=== PATIENT | male | born 1970 | race Caucasian/White ===

== ENCOUNTER → 2016-06-01 | Outpatient (CLI) | payer OTHER ==
[2016-02-05 14:18] VITALS: BP 126/84
[~2016-06-01] MED LIST: ESCI10TA PO; HYDR-2762 PO; IBUP200T77 PO; IVAB5TAB PO; LISI10TA2 PO; LORA10TA68 PO; METH-38 PO; METO25TA9 PO; OMEP20CA9 PO; OXYC-244 PO; TEST200V3 IM
--- NOTE | 2016-06-01 11:14 | CARD ---
APPROVED REPORT EXAM: Two-dimensional and M-mode echocardiogram with Doppler and color Doppler. Other Information Quality : Good INDICATION Non-Ischemic Cardiomyopathy 2D DIMENSIONS RVDd2.5 (2.9-3.5cm)Left Atrium(2D)3.0 (1.6-4.0cm) IVSd1.1 (0.7-1.1cm)Aortic Root(2D)3.1 (2.0-3.7cm) LVDd5.9 (3.9-5.9cm)LVOT Diameter2.0 (1.8-2.4cm) PWd0.9 (0.7-1.1cm)LVDs4.3 (2.5-4.0cm) FS (%) 23.0 %SV91.7 ml LVEF(%)45.0 (>50%) Aortic Valve AoV Peak Jossue.131.4cm/sAoV VTI20.7cm AO Peak GR.6.9mmHgLVOT Peak Jossue.98.9cm/s AO Mean GR.4mmHgAVA (VMAX)2.36cm2 JENNY (VTI)2.30cm2 Mitral Valve MV E Zkhehore33.2cm/sMV DECEL ISRX147us MV A Ymvwcljm23.9cm/sE/A Ratio0.8 Tricuspid Valve TR P. Fbuzdngo267kb/sRAP KYIIVOKT8tpJw TR Peak Gr.60zjAdYMFR34rdHm Pulmonary Vein S1 Ztumtxav62.3cm/sD2 Xbwmtdaq77.5cm/s LEFT VENTRICLE The left ventricle is normal size. There is normal left ventricular wall thickness. Left ventricle sy stolic function is mildly impaired. The Ejection Fraction is estimated at 45%. There is mild global h ypokinesis of the left ventricle. Transmitral Doppler flow pattern is Grade I-abnormal relaxation pat tern. RIGHT VENTRICLE The right ventricle is normal size. The right ventricular systolic function is normal. ATRIA The left atrium size is normal. The right atrium size is normal. The interatrial septum is intact wit h no evidence for an atrial septal defect or patent foramen ovale as noted on 2-D or Doppler imaging. AORTIC VALVE The aortic valve is normal in structure and function. Doppler and Color Flow revealed no significant aortic regurgitation. There is no significant aortic valvular stenosis. MITRAL VALVE The mitral valve is normal in structure and function. There is no evidence of mitral valve prolapse. There is no mitral valve stenosis. Doppler and Color-flow revealed trace to mild mitral regurgitation . TRICUSPID VALVE The tricuspid valve is normal in structure and function. Doppler and Color Flow revealed trace to mil d tricuspid regurgitation. The PA pressure was estimated at 18 mmHg. There is no tricuspid valve sten osis. PULMONIC VALVE The pulmonary valve is normal in structure and function. Doppler and Color Flow revealed mild pulmoni c valvular regurgitation. There is no pulmonic valvular stenosis. GREAT VESSELS The aortic root is normal in size. The ascending aorta is normal in size. The IVC is normal in size a nd collapses >50% with inspiration. PERICARDIAL EFFUSION There is no evidence of significant pericardial effusion. Critical Notification Critical Value: No <Conclusion> The left ventricle is normal size. Left ventricle systolic function is mildly impaired. The Ejection Fraction is estimated at 45%. There is mild global hypokinesis of the left ventricle. There is no significant aortic valvular stenosis. Doppler and Color Flow revealed no significant aortic regurgitation. Doppler and Color-flow revealed trace to mild mitral regurgitation. Doppler and Color Flow revealed trace to mild tricuspid regurgitation. The PA pressure was estimated at 18 mmHg.
== END | disposition home or self-care (01) ==
LOC: ECHO 09:57
PROVIDERS: ATTEND Internal Medicine Cardiovascular Disease
DX: I42.9 Cardiomyopathy, unspecified (principal); I37.1 Nonrheumatic pulmonary valve insufficiency; I34.0 Nonrheumatic mitral (valve) insufficiency
CPT/HCPCS: 93306

== ENCOUNTER → 2016-08-25 | Outpatient (CLI) | payer OTHER ==
[2016-02-05 14:18] VITALS: BP 126/84
--- NOTE | 2016-08-25 09:59 | KCIC ---
EXAM: Lumbar spine, 2 views. HISTORY: Pain. COMPARISON: 04/13/2016 FINDINGS: Frontal and lateral views of the lumbar spine are obtained. There has been instrumented spinal fusion and intervertebral disc fusion device placement at L4-L5. There is endplate remodeling at this level. There is no significant listhesis. The vertebral bodies are normal in height. IMPRESSION: 1. Instrumented fusion at L4-L5. 2. No acute osseous finding. Electronically signed by: Adriana Orantes MD (08/25/2016 9:56 AM)
== END | disposition home or self-care (01) ==
LOC: KCIC 09:31
PROVIDERS: ATTEND Neurological Surgery
DX: M43.26 Fusion of spine, lumbar region (principal); Z98.1 Arthrodesis status
CPT/HCPCS: 72100

== ENCOUNTER → 2016-11-18 | Outpatient (CLI) | payer OTHER ==
[2016-02-05 14:18] VITALS: BP 126/84
[~2016-11-18] MED LIST changes: -ESCI10TA PO; +ESCITALOPRAM OX10 MG PO; -OXYC-244 PO; +OXYC-327 PO
--- NOTE | 2016-11-18 13:59 | KCIC ---
Examination: 2 views of the lumbar spine HISTORY: History of low back pain COMPARISON: 08/25/2016 FINDINGS: Spinal fusion hardware is again identified with intervertebral disc spacer identified at L4-L5 vertebral level grossly similar to prior exam. There is mild endplate remodeling at this level. No evidence of significant listhesis. The vertebral body heights are maintained. IMPRESSION: Unchanged hardware L4-L5 vertebral level. Minimal endplate remodeling at this level. Electronically signed by: Dillan Chavarria MD (11/18/2016 1:56 PM) [facility]
== END | disposition home or self-care (01) ==
LOC: KCIC 11:52
PROVIDERS: ATTEND Neurological Surgery
DX: M54.5 Low back pain (principal)
CPT/HCPCS: 72100

== ENCOUNTER → 2017-02-08 | Outpatient (CLI) | payer OTHER ==
[2016-02-05 14:18] VITALS: BP 126/84
[~2017-02-08] MED LIST changes: +METO-239 PO; -METO25TA9 PO
--- NOTE | 2017-02-08 12:54 | KCIC ---
LUMBAR SPINE MIN 4V History: Postop one year lumbar fusion Comparison: November 18, 2016 Findings: 5 views of the lumbar spine are submitted. There again has been posterolateral fusion at L4-5 with bilateral pedicle screws attached to intact vertical rods. There is again interbody spacer on the left at the L4-5 level, similar in position. Lumbar vertebral body stature and AP alignment are maintained. No acute osseous normality is identified. There has been cholecystectomy. Impression: 1. There is intact posterolateral fusion hardware at L4-5. Electronically signed by: Bijan Martinez MD (02/08/2017 12:51 PM) [facility]
== END | disposition home or self-care (01) ==
LOC: KCIC 12:25
PROVIDERS: ATTEND Neurological Surgery
DX: Z98.1 Arthrodesis status (principal); Z98.890 Other specified postprocedural states
CPT/HCPCS: 72110

== ENCOUNTER → 2017-04-22 | Outpatient (CLI) | payer OTHER | END | disposition home or self-care (01) | LOC: ECHO 12:48 | DX: I37.1 Nonrheumatic pulmonary valve insufficiency (principal); R00.0 Tachycardia, unspecified | CPT/HCPCS: 93306 ==

== ENCOUNTER → 2018-02-01 | Outpatient (CLI) | payer OTHER ==
[2017-12-05 11:23] VITALS: BP 102/66
[~2018-02-01] MED LIST changes: +ALPR0.5T6 PO; +COLE1TAB PO; +MESA0.372 PO
--- NOTE | 2018-02-01 11:47 | KCIC ---
Small bowel follow-through study 02/01/2018 CLINICAL HISTORY: Chronic diarrhea with left lower quadrant abdominal pain intermittently. TECHNIQUE: A small bowel follow-through study was performed under radiographic and intermittent fluoroscopic control. The total fluoroscopic time is 2 minutes 11 seconds. 3 digital spot radiographs were obtained. FINDINGS: Comparison is made to the patient's CT scan of the abdomen and pelvis dated 12/03/2017. An AP digital radiograph of the abdomen/pelvis was obtained as a mis manager. This radiograph demonstrates surgical clips within the right upper quadrant abdomen consistent with a cholecystectomy. The patient is post fusion using pedicle screws, stabilizing rods and bone graft material at L4-5. The abdominal bowel gas pattern is nonobstructive. Calcifications are seen within the pelvis consistent with a glass. Mild degenerative changes are seen involving the lower lumbar spine and both hips. The mucosal pattern of the duodenum, jejunum, ileum and terminal ileum is within normal limits. The small bowel transit time is within normal limits. The cecum is located within the right mid abdomen. The appendix is distended with contrast. No abnormality of the appendix is seen. No small bowel wall thickening is noted. IMPRESSION: Negative study. Electronically signed by: Joseph Silveira MD (02/01/2018 11:44 AM) [facility]
== END | disposition home or self-care (01) ==
LOC: KCIC 08:16
PROVIDERS: ATTEND Internal Medicine Gastroenterology
DX: R10.32 Left lower quadrant pain (principal); R19.7 Diarrhea, unspecified; I10 Essential (primary) hypertension; K21.9 Gastro-esophageal reflux disease without esophagitis; F17.210 Nicotine dependence, cigarettes, uncomplicated
CPT/HCPCS: 74250

== ENCOUNTER → 2018-04-29 | Outpatient (CLI) | payer OTHER ==
[2017-12-05 11:23] VITALS: BP 102/66
[~2018-04-29] MED LIST changes: -HYDR-2762 PO; +HYDR-2765 PO; -OXYC-327 PO; +OXYC1TAB19 PO
--- NOTE | 2018-04-29 13:42 | CARD ---
MR#: [id number] Date of Study: 04/29/2018 Ordering Physician: LAYO AGUILAR, Referring Physician: LAYO AGUILAR, Tech: Alexia Villasenor [facility] APPROVED REPORT EXAM: Two-dimensional and M-mode echocardiogram with Doppler and color Doppler. Other Information Quality : GoodHR: 76bpm Rhythm : NSR INDICATION Cardiomyopathy 2D DIMENSIONS RVDd3.1 (2.9-3.5cm)Left Atrium(2D)3.1 (1.6-4.0cm) IVSd0.9 (0.7-1.1cm)Aortic Root(2D)3.2 (2.0-3.7cm) LVDd5.8 (3.9-5.9cm)LVOT Diameter2.2 (1.8-2.4cm) PWd0.9 (0.7-1.1cm)LVDs4.7 (2.5-4.0cm) FS (%) 18.7 %SV63.3 ml M-Mode DIMENSIONS Left Atrium(MM)2.53 (2.5-4.0cm)Aortic Root2.93 (2.2-3.7cm) Aortic Valve AoV Peak Jossue.128.2cm/sAoV VTI25.3cm AO Peak GR.6.6mmHgLVOT Peak Jossue.105.9cm/s AO Mean GR.3mmHgAVA (VMAX)3.22cm2 JENNY (VTI)3.20cm2 Mitral Valve MV E Dzbumhls97.1cm/sMV DECEL ISAV591vw MV A Cbfgqhfg40.0cm/sE/A Ratio0.9 MV A Kycjnihg57cd Pulmonary Valve PV Peak Stmjrofz06.3cm/s Tricuspid Valve TR P. Zlauyvcb933hk/sRAP JMVIXAZK1kuBo TR Peak Gr.46scWkGKJK15egNv Pulmonary Vein S1 Wiuyulhy08.1cm/sD2 Hsweagvg29.1cm/s PVa mvbegjsi76mqlf LEFT VENTRICLE The Left Ventricle is borderline dilated. There is normal left ventricular wall thickness. The ejecti on fraction is mildly impaired. The Ejection Fraction is estimated at 45%. There is mild global hypok inesis of the left ventricle. Transmitral Doppler flow pattern is Grade I-abnormal relaxation pattern . RIGHT VENTRICLE The right ventricle is normal size. There is normal right ventricular wall thickness. The right ventr icular systolic function is normal. ATRIA The left atrium size is normal. The right atrium size is normal. The interatrial septum is intact wit h no evidence for an atrial septal defect or patent foramen ovale as noted on 2-D or Doppler imaging. AORTIC VALVE The aortic valve is normal in structure and function. The aortic valve is trileaflet. Doppler and Col or Flow revealed no significant aortic regurgitation. There is no significant aortic valvular stenosi s. MITRAL VALVE The mitral valve is normal in structure and function. There is no evidence of mitral valve prolapse. There is no mitral valve stenosis. Doppler and Color Flow revealed no mitral valve regurgitation note d. TRICUSPID VALVE The tricuspid valve is normal in structure and function. Doppler and Color Flow revealed trace tricus pid regurgitation. The PA pressure was estimated at 22 mmHg. There is no tricuspid valve prolapse or vegetation. There is no tricuspid valve stenosis. PULMONIC VALVE The pulmonary valve is normal in structure and function. Doppler and Color Flow revealed mild pulmoni c valvular regurgitation. There is no pulmonic valvular stenosis. GREAT VESSELS The aortic root is normal in size. The ascending aorta is normal in size. The IVC is normal in size a nd collapses >50% with inspiration. PERICARDIAL EFFUSION There is no evidence of significant pericardial effusion. Critical Notification Critical Value: No <Conclusion> The Left Ventricle is borderline dilated. The ejection fraction is mildly impaired. The Ejection Fraction is estimated at 45%. There is mild global hypokinesis of the left ventricle. There is no significant aortic valvular stenosis. Doppler and Color Flow revealed no significant aortic regurgitation. Doppler and Color Flow revealed no mitral valve regurgitation noted. Doppler and Color Flow revealed trace tricuspid regurgitation. The PA pressure was estimated at 22 mmHg. Signed by : Roland Campos MD Electronically Approved : 04/29/2018 13:40:21
== END | disposition home or self-care (01) ==
LOC: ECHO 12:31
PROVIDERS: ATTEND Internal Medicine Cardiovascular Disease
DX: I37.1 Nonrheumatic pulmonary valve insufficiency (principal); I42.9 Cardiomyopathy, unspecified
CPT/HCPCS: 93306

== ENCOUNTER → 2018-12-29 | Outpatient (CLI) | payer OTHER ==
[2017-12-05 11:23] VITALS: BP 102/66
[~2018-12-29] MED LIST changes: +OMEP20CA10 PO; -OMEP20CA9 PO
[2018-12-29 11:58] LABS: ALBUMIN 3.8 g/dL (3.4-5.0); ALBUMIN/GLOBULIN RATIO 1.1 (1.0-1.7); CALCIUM 9.1 mg/dL (8.5-10.1); CHOLESTEROL/HDL RATIO 4.1; CREATININE 0.9 mg/dL (0.7-1.3); GFR 89.7; POTASSIUM 3.6 mmol/L (3.5-5.1); TOTAL BILIRUBIN 0.4 mg/dL (0.2-1.0); TOTAL PROTEIN 7.3 g/dL (6.4-8.2)
== END | disposition home or self-care (01) ==
LOC: LAB 10:53
PROVIDERS: ATTEND Internal Medicine Cardiovascular Disease
DX: I42.9 Cardiomyopathy, unspecified (principal); E78.1 Pure hyperglyceridemia
CPT/HCPCS: 36415; 80053; 80061; 83721; 83880

== ENCOUNTER → 2019-01-16 | Outpatient (CLI) | payer OTHER ==
[2017-12-05 11:23] VITALS: BP 102/66
--- NOTE | 2019-01-16 08:51 | KCIC ---
EXAM: Abdomen sonogram. HISTORY: Elevated liver function laboratory values. TECHNIQUE: Sonographic imaging of the abdomen was performed. COMPARISON: None. FINDINGS: The liver is upper normal in size. There is hepatic steatosis. No focal hepatic lesion is seen. The common bile duct is normal in caliber. The gallbladder is surgically absent. The right kidney is unremarkable. The inferior vena cava is patent. The aorta is normal in caliber. The pancreas is partially obscured due to bowel gas. IMPRESSION: 1. Hepatic steatosis. 2. Cholecystectomy. Electronically signed by: Adriana Orantes MD (01/16/2019 8:48 AM) [facility]
== END | disposition home or self-care (01) ==
LOC: KCIC US 07:53
PROVIDERS: ATTEND Family Medicine
DX: K76.0 Fatty (change of) liver, not elsewhere classified (principal); Z90.49 Acquired absence of other specified parts of digestive tract
CPT/HCPCS: 76705

== ENCOUNTER 2019-06-11 16:14 | Emergency (ER) | payer OTHER ==
[~2019-06-11] VITALS: Ht 172.7 cm; Wt 77.2 kg
[~2019-06-11 16:14] MED LIST changes: -OMEP20CA10 PO; +OMEP20CA16 PO
[2019-06-11] MEDS ORDERED: HYDROmorphone 2 MG/ML VIAL IVP ONE (16:30)
[2019-06-11] MEDS ORDERED: ONDANSETRON PF 4 MG/2 ML VIAL. IV ONE (16:30)
[2019-06-11] MEDS ORDERED: IV NORMAL SALINE 1000ML BAG 1,000 ML IV ONE (16:45)
[2019-06-11 17:07] LABS: BASO % 0 % (0-3); EOS # 0.1 x10^3/uL (0.0-0.7); EOS % 1 % (0-3); HEMATOCRIT 40.9 % (39.0-53.0); HEMOGLOBIN 14.5 g/dL (13.0-17.5); LYMPH # 2.5 x10^3/uL (1.0-4.8); LYMPH % 37 % (24-48); MEAN CORPUSCULAR HEMOGLOBIN 35 pg (25-35); MEAN CORPUSCULAR HGB CONC 36 g/dL (31-37); MEAN CORPUSCULAR VOLUME 99 fL (79-100); MONO # 0.9 x10^3/uL (0.0-1.1); MONO % 13 % (0-9); NEUT # 3.3 x10^3/uL (1.8-7.7); NEUT % 49 % (31-73); PLATELET COUNT 185 x10^3/uL (140-400); RED BLOOD COUNT 4.14 x10^6/uL (4.30-5.70); WHITE BLOOD COUNT 6.8 x10^3/uL (4.0-11.0)
[2019-06-11 17:18] LABS: CALCIUM 8.4 mg/dL (8.5-10.1); CREATININE 0.8 mg/dL (0.7-1.3); GFR 102.3; POTASSIUM 4.1 mmol/L (3.5-5.1)
[2019-06-11] MEDS ORDERED: IOHEXOL 300 MG/ML 100ML VIAL. IV ONE (17:30)
[2019-06-11] MEDS ORDERED: CONTRAST GIVEN. MC PRN (17:45)
[2019-06-11] MEDS ORDERED: HYDROmorphone 2 MG/ML VIAL IV ONE (18:00)
[2019-06-11 18:10] LABS: BILIRUBIN,URINE NEGATIVE (NEG); CLARITY,URINE CLEAR; COLOR,URINE YELLOW; NITRITE,URINE NEGATIVE (NEG); PROTEIN,URINE NEGATIVE (NEG-TRACE); UROBILINOGEN,URINE 0.2 mg/dL (0.2 mg/dL)
[2019-06-11 18:25] LABS: BACTERIA,URINE 0 /HPF (0-FEW); RBC,URINE 0 /HPF (0-2); SQUAMOUS EPITHELIAL CELL,UR OCC /LPF; WBC,URINE OCC /HPF (0-4)
--- NOTE | 2019-06-11 18:35 | RAD ---
Examination: CT CHEST ABD PELVIS W/CONTRAST, CT LUMBAR SPINE RECONSTRUCTION, CT THORACIC SPINE RECONSTRUCT History: Pain. Symptoms especially involving the left rib and left flank regions. Fell into a manhole Comparison/Correlation: 02/04/2016 CT lumbar spine without contrast. 12/03/2017 CT abdomen and pelvis with contrast. Findings: Axial images of the chest, abdomen, and pelvis were obtained following IV contrast. Sagittal and coronal reformatted images were provided. Axial images of the thoracic and lumbar spine were obtained without contrast. Sagittal and coronal reformatted images were provided. The tracheal bronchial tree is unremarkable. No infiltrate or pleural effusion. Minimal discoid linear atelectasis both right middle lobe. Small densities at the left mid to lower thoracic level about the major fissure which probably represent. Fissural lymph nodes are identified. Calcified left lung basilar granulomas are present. No pneumothorax. No pericardial effusion. Displaced left 12th rib fracture is present. Nondisplaced left 11th rib fracture is present posteriorly. Spinal stimulator device with leads terminating in the lower thoracic spinal canal noted. Radiopaque densities which appear present anchor sutures involving the right bony glenoid are present. Thoracic aorta is unremarkable. Calcification involvement involving the abdominal aorta is minimal and scattered. Cholecystectomy is present. Spleen, pancreas, and adrenal glands are normal. Calcifications involve the spleen. Kidneys are unremarkable. Benign-appearing calcific densities involving the pelvic fat noted. Urinary bladder is unremarkable. No enlarged abdominal or pelvic lymph nodes. No ascites or pelvic free fluid. Appendix is normal. No bowel obstruction. L4-5 lumbar spine postoperative fusion is present with intervertebral disc spacer material. Alignment of the thoracic and lumbar spine is normal. Vertebral body heights are adequate. Disc spaces are adequate. Impression: Nondisplaced acute left 11th rib fracture. Displaced acute left 12th rib fracture. No pneumothorax or infiltrate. No evidence of abdominal or pelvic organ laceration. No thoracic or lumbar spine malalignment or fracture. PQRS Compliance Statement: One or more of the following individualized dose reduction techniques were utilized for this examination: 1. Automated exposure control 2. Adjustment of the mA and/or kV according to patient size 3. Use of iterative reconstruction technique Electronically signed by: Benny Roth MD (06/11/2019 6:32 PM) [facility]
[2019-06-11] MEDS ORDERED: HYDR-2761 PO (18:53)
--- NOTE | 2019-06-11 18:53 | PHYS DOC ---
Past Medical History Past Medical History: Alcoholism, Anxiety, GERD, Hypertension Additional Past Medical Histor: nonischemic cardiomyopathy, chronic back pain Past Surgical History: Cholecystectomy, Other Additional Past Surgical Histo: RT SHOULDER,LEFT KNEE, LOW BACK,spinal cord stimulator,hemmorhoid Smoking Status: Current Every Day Smoker Additional Information: smokes 0-3 small cigars daily Alcohol Use: Heavy Additional Information: drinks up to 6 beers daily Drug Use: None Adult General Chief Complaint Chief Complaint: TRAUMA ALERT HPI HPI Patient is a 49 year old male who presents to the emergency department via EMS with complaints of left low back pain and left posterior rib pain after acc identally falling into an uncovered manhole today. Patient fell approximately 3 feet down into the manhole. He was chasing a dog that was about to run into traffic when he accidentally fell into the manhole. He denies any loss of consciousness, head, neck, or extremity pain after the fall. He currently rates his pain a 10 out of 10 on the pain scale, he denies any alleviating factors, the pain increases with deep breath and palpation. Review of Systems Review of Systems Complete ROS is negative unless otherwise noted in HPI. Current Medications Current Medications Current Medications Medications (Trade) Dose Ordered Sig/Marco Start Time Stop Time Status Last Admin Dose Admin Hydromorphone HCl (Dilaudid) 1 mg 1X ONCE 06/11/19 18:00 06/11/19 18:01 DC 06/11/19 18:31 1 MG Info (CONTRAST GIVEN -- Rx MONITORING) 1 each PRN DAILY PRN 06/11/19 17:45 06/11/19 19:25 DC Iohexol (Omnipaque 300 Mg/ml) 75 ml 1X ONCE 06/11/19 17:30 06/11/19 17:31 DC 06/11/19 17:43 75 ML Ondansetron HCl (Zofran) 4 mg 1X ONCE 06/11/19 16:30 06/11/19 16:31 DC 06/11/19 16:51 4 MG Sodium Chloride 1,000 ml @ 1,000 mls/hr 1X ONCE 06/11/19 16:45 06/11/19 17:44 DC 06/11/19 16:51 1,000 MLS/HR Allergies Allergies Allergies Coded Allergies Type Severity Reaction Last Updated Verified No Known Drug Allergies 02/04/16 No Physical Exam Physical Exam See Above Constitutional: Well developed, well nourished, moderate distress, non-toxic appearance. [] HENT: Normocephalic, atraumatic, bilateral external ears normal, oropharynx moist, no oral exudates, nose normal. [] Eyes: PERRLA, EOMI, conjunctiva normal, no discharge. [] Neck: Normal range of motion, no tenderness, supple, no stridor. [] Cardiovascular:Heart rate regular rhythm, no murmur [] Lungs & Thorax: Bilateral breath sounds clear to auscultation, Respirations even and unlabored, no retractions, pain with inspiration; left lower posterior rib tenderness to palpation, no subcutaneous emphysema, no crepitus Abdomen: soft, no tenderness Skin: Warm, dry, no erythema, no rash; bruising and an abrasion noted to left posterior lower ribs. [] Back: T-spine and L-spine tenderness to palpation, no step-off, no obvious deformity Extremities: No tenderness, no cyanosis, no clubbing, ROM intact, no edema. [] Neurologic: Alert and oriented X 3, no focal deficits noted. [] Psychologic: Affect normal, judgement normal, mood normal. [] Current Patient Data Vital Signs Vital Signs Date Time Temp Pulse Resp B/P (MAP) Pulse Ox O2 Delivery O2 Flow Rate FiO2 06/11/19 19:01 86 19 114/77 (89) 96 Room Air 06/11/19 16:14 98.4 98.4 Lab Values Laboratory Tests Test 06/11/19 16:54 06/11/19 17:15 White Blood Count 6.8 x10^3/uL (4.0-11.0) Red Blood Count 4.14 x10^6/uL (4.30-5.70) L Hemoglobin 14.5 g/dL (13.0-17.5) Hematocrit 40.9 % (39.0-53.0) Mean Corpuscular Volume 99 fL (79-100) Mean Corpuscular Hemoglobin 35 pg (25-35) Mean Corpuscular Hemoglobin Concent 36 g/dL (31-37) Red Cell Distribution Width 13.0 % (11.5-14.5) Platelet Count 185 x10^3/uL (140-400) Neutrophils (%) (Auto) 49 % (31-73) Lymphocytes (%) (Auto) 37 % (24-48) Monocytes (%) (Auto) 13 % (0-9) H Eosinophils (%) (Auto) 1 % (0-3) Basophils (%) (Auto) 0 % (0-3) Neutrophils # (Auto) 3.3 x10^3/uL (1.8-7.7) Lymphocytes # (Auto) 2.5 x10^3/uL (1.0-4.8) Monocytes # (Auto) 0.9 x10^3/uL (0.0-1.1) Eosinophils # (Auto) 0.1 x10^3/uL (0.0-0.7) Basophils # (Auto) 0.0 x10^3/uL (0.0-0.2) Sodium Level 133 mmol/L (136-145) L Potassium Level 4.1 mmol/L (3.5-5.1) Chloride Level 98 mmol/L (98-107) Carbon Dioxide Level 24 mmol/L (21-32) Anion Gap 11 (6-14) Blood Urea Nitrogen 8 mg/dL (8-26) Creatinine 0.8 mg/dL (0.7-1.3) Estimated GFR (Cockcroft-Gault) 102.3 Glucose Level 118 mg/dL (70-99) H Calcium Level 8.4 mg/dL (8.5-10.1) L Urine Collection Type Unknown Urine Color Yellow Urine Clarity Clear Urine pH 6.0 (<5.0-8.0) Urine Specific [place] 1.010 (1.000-1.030) Urine Protein Negative mg/dL (NEG-TRACE) Urine Glucose (UA) Negative mg/dL (NEG) Urine Ketones (Stick) Negative mg/dL (NEG) Urine Blood Negative (NEG) Urine Nitrite Negative (NEG) Urine Bilirubin Negative (NEG) Urine Urobilinogen Dipstick 0.2 mg/dL (0.2 mg/dL) Urine Leukocyte Esterase Negative (NEG) Urine RBC 0 /HPF (0-2) Urine WBC Occ /HPF (0-4) Urine Squamous Epithelial Cells Occ /LPF Urine Bacteria 0 /HPF (0-FEW) Laboratory Tests 06/11/19 16:54 Laboratory Tests 06/11/19 16:54 EKG EKG [] Radiology/Procedures Radiology/Procedures PROCEDURE: CT CHEST ABD PELVIS W/CONTRAST Examination: CT CHEST ABD PELVIS W/CONTRAST, CT LUMBAR SPINE RECONSTRUCTION, CT THORACIC SPINE RECONSTRUCT History: Pain. Symptoms especially involving the left rib and left flank regions. Fell into a manhole Comparison/Correlation: 02/04/2016 CT lumbar spine without contrast. 12/03/2017 CT abdomen and pelvis with contrast. Findings: Axial images of the chest, abdomen, and pelvis were obtained following IV contrast. Sagittal and coronal reformatted images were provided. Axial images of the thoracic and lumbar spine were obtained without contrast. Sagittal and coronal reformatted images were provided. The tracheal bronchial tree is unremarkable. No infiltrate or pleural effusion. Minimal discoid linear atelectasis both right middle lobe. Small densities at the left mid to lower thoracic level about the major fissure which probably represent. Fissural lymph nodes are identified. Calcified left lung basilar granulomas are present. No pneumothorax. No pericardial effusion. Displaced left 12th rib fracture is present. Nondisplaced left 11th rib fracture is present posteriorly. Spinal stimulator device with leads terminating in the lower thoracic spinal canal noted. Radiopaque densities which appear present anchor sutures involving the right bony glenoid are present. Thoracic aorta is unremarkable. Calcification involvement involving the abdominal aorta is minimal and scattered. Cholecystectomy is present. Spleen, pancreas, and adrenal glands are normal. Calcifications involve the spleen. Kidneys are unremarkable. Benign-appearing calcific densities involving the pelvic fat noted. Urinary bladder is unremarkable. No enlarged abdominal or pelvic lymph nodes. No ascites or pelvic free fluid. Appendix is normal. No bowel obstruction. L4-5 lumbar spine postoperative fusion is present with intervertebral disc spacer material. Alignment of the thoracic and lumbar spine is normal. Vertebral body heights are adequate. Disc spaces are adequate. Impression: Nondisplaced acute left 11th rib fracture. Displaced acute left 12th rib fracture. No pneumothorax or infiltrate. No evidence of abdominal or pelvic organ laceration. No thoracic or lumbar spine malalignment or fracture. [] Course & Med Decision Making Course & Med Decision Making Pertinent Labs and Imaging studies reviewed. (See chart for details) Patient is a 49-year-old male who presented to the emergency room with complaints of pain with inspiration and left low back pain after falling into a manhole this afternoon. A CT chest abdomen pelvis with lumbar and thoracic spine reconstruction was ordered. CT results: Nondisplaced acute left 11th rib fracture. Displaced acute left 12th rib fracture. No pneumothorax or infiltrate. No evidence of abdominal or pelvic organ laceration. No thoracic or lumbar spine malalignment or fracture. The patient was given 2 mg of IV Dilaudid, 4 mg of Zofran, and 1 L of normal saline. CBC was unremarkable, BMP revealed sodium 133, glucose of 118, and calcium of 8.4 was otherwise unremarkable; UA was negative for blood presence. Prescriptions written for hydrocodone and naproxen. Patient was encouraged to apply ice to sore areas, he was also provided with a incentive spirometer, encouraged patient to hold the pillow, take a deep breath and cough at least twice an hour while he is awake. Follow-up with his primary care doctor in 1 to 2 days for reevaluation, return to the ER if symptoms worsen or he becomes short of breath. Patient verbalized an understanding of home care, medications, follow-up, and return to ED instructions and was in agreement with the plan of care. [] Dragon Disclaimer Dragon Disclaimer This electronic medical record was generated, in whole or in part, using a voice recognition dictation system. Departure Departure Impression: Primary Impression: Multiple fractures of ribs, left side, initial encounter for closed fracture Disposition: HOME, SELF-CARE Condition: STABLE Referrals: FELISA GIBSON MD (PCP) Patient Instructions: Rib Fracture, [id number]-my-[id number] Additional Instructions: Fill the prescription and take as directed for severe pain. Hold a pillow and cough at least 2 times every hour while awake. Use the incentive spirometer that was provided to you as instructed in the ER. Follow up with your primary care doctor this week. Return to the ER if symptoms worsen. Scripts Naproxen (NAPROXEN) 500 Mg Tablet 1 TAB PO BID PRN for PAIN for 10 Days, #20 TAB 0 Refills Prov: GARRETT CASTELLANOS REFLOW OPERATOR 06/11/19 Hydrocodone Bit/Acetaminophen (HYDROCODONE-APAP 5-325 ) 1 Tab Tablet 1 TAB PO PRN Q6HRS PRN for PAIN for 5 Days, #20 TAB 0 Refills Prov: GARRETT CASTELLANOS REFLOW OPERATOR 06/11/19 GARRETT CASTELLANOS REFLOW OPERATOR Jun 11, 2019 18:53
[2019-06-11] MEDS ORDERED: NAPR-514 PO (18:56)
[2019-06-11 19:01] VITALS: BP 114/77
== END 2019-06-11 19:23 | disposition home or self-care (01) ==
LOC: ER 16:14
DX: S22.42XA Multiple fractures of ribs, left side, initial encounter for closed fracture (principal); M54.5 Low back pain; K21.9 Gastro-esophageal reflux disease without esophagitis; I10 Essential (primary) hypertension; G89.29 Other chronic pain; F17.210 Nicotine dependence, cigarettes, uncomplicated; Z90.49 Acquired absence of other specified parts of digestive tract; F10.20 Alcohol dependence, uncomplicated; Y90.9 Presence of alcohol in blood, level not specified; W17.1XXA Fall into storm drain or manhole, initial encounter; Y93.89 Activity, other specified; Y92.89 Other specified places as the place of occurrence of the external cause; Y99.8 Other external cause status
CPT/HCPCS: 36415; 71260; 74177; 80048; 81001; 85025; 96374; 96375; 96376; 99285; J1170; J2405; J7030; Q9967

== ENCOUNTER → 2020-03-13 | Outpatient (CLI) | payer OTHER ==
[~2020-03-13] MED LIST changes: +HYDR-2761 PO; +NAPR-514 PO
--- NOTE | 2020-03-13 17:46 | CARD ---
MR#: [id number] Date of Study: 03/13/2020 Ordering Physician: LAYO AGUILAR, Referring Physician: LAYO AGUILAR, Tech: Imani Mata [facility] APPROVED REPORT EXAM: Two-dimensional and M-mode echocardiogram with Doppler and color Doppler. Other Information Quality : Good INDICATION Nonischemic Cardiomyopathy 2D DIMENSIONS RVDd2.9 (2.9-3.5cm)Left Atrium(2D)2.8 (1.6-4.0cm) IVSd1.1 (0.7-1.1cm)Aortic Root(2D)3.1 (2.0-3.7cm) LVDd5.6 (3.9-5.9cm)LVOT Diameter2.0 (1.8-2.4cm) PWd0.9 (0.7-1.1cm)LVDs3.9 (2.5-4.0cm) FS (%) 29.1 %SV83.2 ml Aortic Valve AoV Peak Jossue.114.3cm/sAoV VTI21.8cm AO Peak GR.5.2mmHgLVOT Peak Jossue.97.5cm/s LVOT VTI 18.87cmAO Mean GR.3mmHg JENNY (VMAX)2.21us0QQT (VTI)2.79cm2 Mitral Valve MV E Kuakuxad67.1cm/sMV DECEL [id number] MV A Qpzldooe15.0cm/sMV HNH888le E/A Ratio1.3MVA (PHT)2.17cm2 TDI E/Lateral E'5.1E/Medial E'12.5 Tricuspid Valve TR P. Htlrbgwu804mv/sRAP PTLQEVJV2zfIa TR Peak Gr.54goEcOAUW94meVc Pulmonary Vein S1 Xkrojxds46.7cm/sD2 Yirlwqzs62.4cm/s LEFT VENTRICLE The left ventricle is normal size. There is normal left ventricular wall thickness. The left ventricu lar systolic function is low normal to mildly decreased. The ejection fraction is 45 to 50%. There i s minimal global hypokinesis of the left ventricle. RIGHT VENTRICLE The right ventricle is normal size. The right ventricular systolic function is normal. ATRIA The left atrium size is normal. The right atrium size is normal. The interatrial septum is intact wit h no evidence for an atrial septal defect or patent foramen ovale as noted on 2-D or Doppler imaging. AORTIC VALVE The aortic valve is calcified but opens well. Doppler and Color Flow revealed no significant aortic r egurgitation. There is no significant aortic valvular stenosis. MITRAL VALVE The mitral valve is calcified but opens well. There is no evidence of mitral valve prolapse. There is no mitral valve stenosis. Doppler and Color-flow revealed trace mitral regurgitation. TRICUSPID VALVE The tricuspid valve is normal in structure and function. Doppler and Color Flow revealed trace tricus pid regurgitation. The PA pressure was estimated at 15 mmHg. There is no tricuspid valve stenosis. PULMONIC VALVE The pulmonary valve is normal in structure and function. Doppler and Color Flow revealed trace to mil d pulmonic valvular regurgitation. There is no pulmonic valvular stenosis. GREAT VESSELS The aortic root is normal in size. The ascending aorta is normal in size. The IVC is normal in size a nd collapses >50% with inspiration. PERICARDIAL EFFUSION There is no evidence of significant pericardial effusion. Critical Notification Critical Value: No <Conclusion> The left ventricle is normal size. The left ventricular systolic function is low normal to mildly decreased. The ejection fraction is 45 to 50%. There is minimal global hypokinesis of the left ventricle. Doppler and Color Flow revealed no significant aortic regurgitation. There is no significant aortic valvular stenosis. Doppler and Color-flow revealed trace mitral regurgitation. Doppler and Color Flow revealed trace tricuspid regurgitation. The PA pressure was estimated at 15 mmHg. Signed by : Roland Campos MD Electronically Approved : 03/13/2020 17:46:34
== END ==
LOC: ECHO 09:49
PROVIDERS: ATTEND Internal Medicine Cardiovascular Disease
DX: I08.8 Other rheumatic multiple valve diseases (principal); I42.9 Cardiomyopathy, unspecified
CPT/HCPCS: 93306

== ENCOUNTER → 2020-07-22 | Outpatient (CLI) | payer OTHER ==
[~2020-07-22] MED LIST changes: +IOHEXOL 300 MG/ML 50 ML VIAL. INT ART ONE; +LIDOCAINE 1% Multi-Dose 20 ML VIAL. ID ONE; +LISI10TA16 PO; -LISI10TA2 PO
--- NOTE | 2020-07-22 15:03 | KCIC ---
Examination: CT arthrogram left shoulder HISTORY: History of left shoulder joint instability COMPARISON: None available TECHNIQUE: Axial CT images of the left shoulder performed after arthrogram injection. Coronal and sag ittal reformats are performed Exposure: One or more of the following individualized dose reduction techniques were utilized for thi s examination: 1. Automated exposure control 2. Adjustment of the mA and/or kV according to patient size 3. Use of iterative reconstruction technique FINDINGS: The long head of the biceps tendon within the bicipital groove. The attachment of the long head the b iceps tendon to the superior labral anchor grossly appears intact. The attachment of the subscapulari s, supraspinatus, infraspinatus tendon grossly appears intact. No evidence of extension of contrast i n the subacromial subdeltoid bursa. There is small amount of contrast extending between the labrum an d cartilage best visualized on series 3 image 23 could be a labral tear. There is mild increased sign al identified in the superior labrum probably a tear. The muscle bulk grossly appears unremarkable. T he acromion is type II. Mild degenerative changes acromioclavicular joint. IMPRESSION: 1. No evidence of full-thickness rotator cuff tear. 2. Probable tear of the labrum. Electronically signed by: Dillan Chavarria MD (07/22/2020 3:01 PM) [id number]
--- NOTE | 2020-07-22 17:35 | KCIC ---
Left shoulder arthrogram 07/22/2020 CLINICAL HISTORY: Left shoulder pain and instability. TECHNIQUE: After the risks and benefits of the procedure were explained the patient, written informed consent was obtained. The skin surface of anterior aspect of the left shoulder was prepped and drape d in sterile fashion. 1 percent lidocaine was used as a local anesthetic. Under fluoroscopic guidance a 22-gauge needle was advanced into the anterior aspect of the left glenohumeral joint. 15 cc of a s olution containing containing 15 cc of Omnipaque 300 and 5 cc of normal saline were injected into the left glenohumeral joint under fluoroscopic guidance. Following this the needle was removed and hemos tasis achieved at the puncture site. A sterile Band-Aid was placed on the skin puncture site. The pat ient tolerated the injection well there were no immediate complications. The total fluoroscopic time for this study was 30 seconds. An AP fluoroscopic captured digital radiograph the left shoulder was o btained. Additionally AP internal and external rotation digital spot radiographs of the of the left s houlder were obtained. (3 images total). Patient was taken to CT where a CT arthrogram was performed. This will be reported separately. FINDINGS: The left shoulder joint is well opacified with contrast. No extension of contrast into the subacromial subdeltoid bursa is seen. Mild degenerative changes are seen involving left AC joint. IMPRESSION: Left shoulder arthrogram performed to facilitate a CT arthrogram which will be reported s eparately. There is no radiographic evidence of a rotator cuff tear. Electronically signed by: Joseph Silveira MD (07/22/2020 5:33 PM) [id number]
== END | disposition home or self-care (01) ==
LOC: KCIC 12:27
PROVIDERS: ATTEND Orthopaedic Surgery
DX: M25.312 Other instability, left shoulder (principal); M25.512 Pain in left shoulder; I50.9 Heart failure, unspecified; K21.9 Gastro-esophageal reflux disease without esophagitis; F41.9 Anxiety disorder, unspecified; F32.9 Major depressive disorder, single episode, unspecified; F17.210 Nicotine dependence, cigarettes, uncomplicated; Z90.49 Acquired absence of other specified parts of digestive tract; Z98.890 Other specified postprocedural states; Z79.899 Other long term (current) drug therapy; Z72.89 Other problems related to lifestyle
CPT/HCPCS: 23350; 73201; 77002; J3490; Q9967; 73040

== ENCOUNTER → 2020-08-30 | Outpatient (CLI) | payer OTHER ==
[~2020-08-30] MED LIST changes: +HYDR-2769 PO; -IOHEXOL 300 MG/ML 50 ML VIAL. INT ART ONE; -LIDOCAINE 1% Multi-Dose 20 ML VIAL. ID ONE
== END ==
LOC: LAB 09:57
PROVIDERS: ATTEND Orthopaedic Surgery
DX: Z01.812 Encounter for preprocedural laboratory examination (principal); Z20.822 Contact with and (suspected) exposure to COVID-19; Z96.612 Presence of left artificial shoulder joint
CPT/HCPCS: U0003

== ENCOUNTER 2020-09-03 09:18 | Day surgery (SDC) | payer OTHER ==
[~2020-09-03] VITALS: Ht 172.7 cm; Wt 74.5 kg
[~2020-09-03 09:18] MED LIST changes: +DEXAMETHASONE SOD PHOS 4 MG/ML VIAL ONE; +FAMOTIDINE 20 MG/2 ML VIAL ONE; -HYDR-2769 PO; +IV RINGERS,LACTATED 1000ML 1,000 ML IV SCH; +MIDAZOLAM HCL/PF 2 MG/2 ML VIAL. ONE; +ONDANSETRON PF 4 MG/2 ML VIAL. ONE; +PROCHLORPERAZINE 10 MG/2 ML VIAL. IVP PRN; +PROPOFOL 10 MG/ML (20ML) VIAL. IV ONE; +ROCURONIUM 50 MG/5 ML VIAL. ONE; +ROPIVacaine 0.5% PF 20 ML VIAL. ONE; +ceFAZolin SODIUM IV Push 1 GM VIAL. IVP PRN; +fentaNYL PF VIAL 100 MCG/2 ML VIAL IVP PRN; +fentaNYL PF VIAL 100 MCG/2 ML VIAL ONE
[2020-09-03] MEDS ORDERED: EPINEPHrine VIAL 30 MG/30 ML VIAL ONE (09:49)
[2020-09-03] MEDS ORDERED: fentaNYL PF VIAL 100 MCG/2 ML VIAL ONE ×2 (12:08→13:51)
[2020-09-03] MEDS ORDERED: NEOSTIGMINE METHYLSULFATE 5 MG/5 ML SYRINGE. ONE (12:39)
[2020-09-03] MEDS ORDERED: GLYCOPYRROLATE 1 MG/5 ML VIAL. ONE (12:40)
[2020-09-03] MEDS ORDERED: SEVOFLURANE > 120 MINUTES. IH ONE (13:01)
[2020-09-03] MEDS ORDERED: HYDR-2769 PO (13:42)
--- NOTE | 2020-09-03 13:44 | DISCH ---
DISCHARGE INSTRUCTIONS Condition on Discharge Condition on Discharge: Stable Activity After Discharge Activity Instructions for Disc: Other, see below (May do fine motor tasks with elbow at side only such as eating writing typing or hanging arm down like a pendulum) Lifting Instructions after Dis: No heavy lifting, No pulling or pushing Weight Bearing Status after Di: Non weight bearing Diet after Discharge Diet after Discharge: Regular Diet Texture: Regular Wound Incision Care Wound/Incision Care: Change dressing (Remove dressing in 2 days may then shower no soaking until sutures removed) Contacting the DRSilvia after DC Call your doctor for: Concerns you may have Follow-Up Follow up with: Dr. Samaniego or Sherry 1 week Treatment/Equipment after DC Adaptive Equipment Issued: None EDVIN SAMANIEGO MD Sep 03, 2020 13:44
[2020-09-03] MEDS: fentaNYL PF VIAL 100 MCG/2 ML VIAL IVP PRN ×2 (13:50→13:52)
[2020-09-03] MEDS ORDERED: HYDROcodone/APAP 10/325 1 TAB TABLET PO ONE (14:00)
[2020-09-03] MEDS ORDERED: MORPHINE SULFATE 2 MG/ML VIAL. ONE ×2 (14:02→14:19)
[2020-09-03] MEDS ORDERED: PROCHLORPERAZINE 10 MG/2 ML VIAL. ONE (14:02)
[2020-09-03] MEDS: MORPHINE SULFATE 2 MG/ML VIAL. IVP PRN ×4 (14:04→14:37)
--- NOTE | 2020-09-03 14:27 | PDOC4 ---
Operative Note Operative Note Date of surgery: 09/03/2020 Preoperative diagnosis: Left shoulder instability Postoperative diagnosis: Same with unidirectional anterior inferior instability Operative procedure: Left shoulder arthroscopy with arthroscopic Bankart repair and guzmán labral debridement Surgeon: Danette Assist: Benito webster assist Anesthesia: General plus scalene block Estimated blood loss: 5 cc Complications: None Operative indications: Please see my orthopedic clinic note for detailed operative indications and note that we had discussed both operative and nonoperative treatment options including a decision based on his imaging that he had an excellent chance of responding favorably to an attempt at arthroscopic stabilization based on his CT arthrogram results. I had covered with him the possibility of infection nerve or blood vessel damage nonhealing recurrent instability continued pain medical or other anesthetic complications among others he agrees to proceed with surgical evaluation and treatment Operative text: Patient was identified procedure verified patient placed in the supine position on the operating table. After adequate amounts of general anesthesia were administered plus a pre-existing scalene block the patient was placed in the decubitus position left side up with all bony prominences well- padded. The left shoulder was then examined under anesthesia found to have full range of motion and unidirectional anterior inferior instability on load-and- shift. The left shoulder was then prepped and draped in standard sterile fashion placed in the arthroscopic arm gutierrez with a total of 10 pounds of traction and after timeout was performed patient procedure identified and verified a standard posterior portal was established anterior portal established using spinal needle localization and the shoulder joint was systematically ex amined. He was found to have good preservation of the glenohumeral joint cartilage. But noted to have significant labral fraying throughout the entire periphery which was trimmed back to stable tissue with the arthroscopic bipolar electrocautery. The damaged anterior inferior joint capsule was elevated off the anterior inferior glenoid with a Eitzen blade from approximately the 3:00 to 7 o'clock position and the anterior inferior glenoid debrided back to bleeding bony tissue and there was no evidence of any bony deficit. Biomet single loaded juggernaut anchors containing a single limb of #2 max braid suture were deployed at the 6 5 and 4:00 positions slightly on the glenohumeral joint face and sutures were passed after obtaining tucks of capsular tissue from approximately the 7:00 6:00 and 5 o'clock position were advanced and secured with sliding locking knots backed up by alternating post half hitches placed away from the joint surface of the labrum. A labral bumper was secured and capsule was sufficiently tightened to stabilize the shoulder in all degrees of internal/external rotation and only noted to have mild restriction of his terminal external rotation and abduction. The joint was then drained of arthroscopic fluid after testing the adequacy of the repair portals were closed with nylon suture sterile dressings were applied patient was placed in an immobilizer and returned to recovery room in stable condition having tolerated procedure well. Benito jenkins was present for the procedure and assisted in patient positioning prepping draping equipment positioning closure dressings and immobilizer placement EDVIN VERA MD Sep 03, 2020 14:27
[2020-09-03] MEDS: HYDROmorphone 2 MG/ML VIAL IVP PRN ×2 (14:48→14:58)
[2020-09-03] MEDS ORDERED: HYDROmorphone 2 MG/ML VIAL ONE (14:48)
[2020-09-03 14:53] VITALS: BP 121/85
== END 2020-09-03 15:30 | disposition home or self-care (01) ==
LOC: SURG 09:18
PROVIDERS: ATTEND Orthopaedic Surgery
DX: M25.312 Other instability, left shoulder (principal); I50.9 Heart failure, unspecified; M19.90 Unspecified osteoarthritis, unspecified site; F41.9 Anxiety disorder, unspecified; F32.9 Major depressive disorder, single episode, unspecified; K21.9 Gastro-esophageal reflux disease without esophagitis; F17.210 Nicotine dependence, cigarettes, uncomplicated; Z90.49 Acquired absence of other specified parts of digestive tract; Z98.890 Other specified postprocedural states; Z79.899 Other long term (current) drug therapy; Z72.89 Other problems related to lifestyle
CPT/HCPCS: 29806; 64415; A4364; A4565; A4930; C1713; J0171; J0690; J0780; J1100; J1170; J2250; J2270; J2405; J2704; J2710; J2795; J3010; J3490; A4452

== ENCOUNTER → 2020-10-30 | Outpatient (CLI) | payer OTHER ==
[~2020-10-30] MED LIST changes: -DEXAMETHASONE SOD PHOS 4 MG/ML VIAL ONE; -FAMOTIDINE 20 MG/2 ML VIAL ONE; +HYDR-2769 PO; +IOHEXOL 300 MG/ML 50 ML VIAL. INT ART ONE; -IV RINGERS,LACTATED 1000ML 1,000 ML IV SCH; +LEXAPRO20 MG PO; +LIDOCAINE 1% Multi-Dose 20 ML VIAL. ID ONE; -MIDAZOLAM HCL/PF 2 MG/2 ML VIAL. ONE; -ONDANSETRON PF 4 MG/2 ML VIAL. ONE; -PROCHLORPERAZINE 10 MG/2 ML VIAL. IVP PRN; -PROPOFOL 10 MG/ML (20ML) VIAL. IV ONE; -ROCURONIUM 50 MG/5 ML VIAL. ONE; -ROPIVacaine 0.5% PF 20 ML VIAL. ONE; -ceFAZolin SODIUM IV Push 1 GM VIAL. IVP PRN; -fentaNYL PF VIAL 100 MCG/2 ML VIAL IVP PRN; -fentaNYL PF VIAL 100 MCG/2 ML VIAL ONE
--- NOTE | 2020-10-30 11:18 | KCIC ---
EXAMINATION: CT LEFT UPPER EXTREMITY WITH, 10/30/2020 9:00 AM CLINICAL INDICATION: Left shoulder pain, to recent falls, surgery August 2020 COMPARISON: CT left shoulder 07/23/2019 TECHNIQUE: Helical CT imaging performed of the left shoulder performed after intra-articular injectio n of contrast, performed separately One or more of the following individualized dose reduction techni ques were utilized for this examination: 1. Automated exposure control 2. Adjustment of the mA and/or kV according to patient size 3. Use of iterative reconstruction technique. FINDINGS: Rotator cuff: Supraspinatus, infraspinatus, subscapularis, and teres minor tendons are grossly intact . There is no evidence of rotator cuff tear. Labrum: There are surgical changes of anterior inferior labral repair. No definite recurrent tear at the site of repair. There is a new contrast-filled defect at the base of the posterior superior and p osterior labrum with increased blunting of the posterior labrum and small adjacent chondral defect. Biceps tendon: Intact and located. Acromioclavicular joint: Minimal degenerative changes. Type II acromion without downsloping. Glenohumeral joint: Chondral defect of the posterior superior chondral labral junction. Cartilage is otherwise intact. Alignment is normal. There is no acute fracture. Other: No contrast in the subacromial-subdeltoid bursa. Probable iatrogenic soft tissue gas inferior to the shoulder. IMPRESSION: 1. There are surgical changes of anterior inferior labral repair. There is slight irregularity of the anterior-inferior labrum but no definite recurrent tear at the site of repair. 2. New contrast-filled defect at the posterior superior and posterior labrum and increased blunting o f the posterior labrum with adjacent chondral defect. This is suspicious for a labral tear although s ome of this could be sequela of debridement. Electronically signed by: Francine Kessler MD (10/30/2020 11:16 AM) [id number]
--- NOTE | 2020-10-30 17:30 | KCIC ---
Fluoroscopically guided injection of the left shoulder to facilitate a CT arthrogram 10/30/2020 Clinical history: Chronic left shoulder pain. Technique: After the risks and benefits of the procedure were explained to the patient, [facility] obtained. The anterior skin surface of the left shoulder was prepped and draped in st erile fashion. 1% lidocaine was used as local anesthetic. Under fluoroscopic guidance, a 22-gauge spi nal needle was advanced into the anterior aspect of the left glenohumeral joint. Following this a lb ution of 15 cc of a solution containing 15 cc of Omnipaque 300 and 5 cc of normal saline were injecte d into the left glenohumeral joint. Following this the needle was removed and hemostasis achieved at the puncture site. A sterile bandage was placed on the skin puncture site. The patient tolerated the procedure well and there were no immediate complications. The patient was taken to CT for for a CT ar throgram. The total fluoroscopic time for this study was 40 seconds. AP internal and external digital spot radiographs of the left shoulder were obtained. FINDINGS: Contrast is seen opacifying the left glenohumeral joint. No extension of contrast into the subacromial/subdeltoid bursa is seen. Impression: Technically successful injection of the left shoulder joint under fluoroscopy to facilita te a CT arthrogram as outlined above. There is no radiographic evidence of a complete tear of the lef t rotator cuff. Electronically signed by: Joseph Silveira MD (10/30/2020 5:28 PM) [id number]
== END | disposition home or self-care (01) ==
LOC: KCIC 08:05
PROVIDERS: ATTEND Physician Assistant
DX: M25.512 Pain in left shoulder (principal); I50.9 Heart failure, unspecified; K21.9 Gastro-esophageal reflux disease without esophagitis; M19.90 Unspecified osteoarthritis, unspecified site; F32.9 Major depressive disorder, single episode, unspecified; F41.9 Anxiety disorder, unspecified; F17.210 Nicotine dependence, cigarettes, uncomplicated; Z79.899 Other long term (current) drug therapy; Z98.890 Other specified postprocedural states; Z72.89 Other problems related to lifestyle
CPT/HCPCS: 20610; 73201; 77002; J3490; Q9967

== ENCOUNTER → 2020-12-25 | Outpatient (CLI) | payer OTHER ==
[~2020-12-25] MED LIST changes: -IOHEXOL 300 MG/ML 50 ML VIAL. INT ART ONE; -LIDOCAINE 1% Multi-Dose 20 ML VIAL. ID ONE
== END ==
LOC: LAB 10:05
PROVIDERS: ATTEND Orthopaedic Surgery
DX: Z01.812 Encounter for preprocedural laboratory examination (principal); Z20.822 Contact with and (suspected) exposure to COVID-19
CPT/HCPCS: U0003; U0005

== ENCOUNTER 2020-12-27 09:10 | Day surgery (SDC) | payer OTHER ==
[~2020-12-27] VITALS: Ht 172.7 cm; Wt 71.0 kg
[~2020-12-27 09:10] MED LIST changes: +DEXAMETHASONE SOD PHOS 4 MG/ML VIAL ONE; +KETOROLAC 30 MG/ML VIAL. ONE; +LIDOCAINE 2% PF 5 ML VIAL. ONE; +ONDANSETRON PF 4 MG/2 ML VIAL. ONE; +PROPOFOL 10 MG/ML (20ML) VIAL. IV ONE; +ROCURONIUM 50 MG/5 ML VIAL. ONE; +SEVOFLURANE 61 TO 120 MINUTES. IH ONE; +ceFAZolin SODIUM IV Push 1 GM VIAL. IVP PRN
[2020-12-27 09:30] VITALS: BP 126/78
[2020-12-27] MEDS ORDERED: IV RINGERS,LACTATED 1000ML 1,000 ML IV SCH ×2 (09:45→12:45)
[2020-12-27] MEDS ORDERED: MIDAZOLAM HCL/PF 2 MG/2 ML VIAL. ONE (10:36)
[2020-12-27] MEDS ORDERED: EPINEPHrine VIAL 30 MG/30 ML VIAL ONE (10:40)
[2020-12-27] MEDS ORDERED: HYDROmorphone 2 MG/ML VIAL ONE (10:57)
[2020-12-27] MEDS ORDERED: KETAMINE HCL IN NACL, ISO-OSM 50 MG/5 ML SYRINGE ONE (10:58)
[2020-12-27] MEDS ORDERED: ePHEDrine PF IN SALINE 50 MG/10 ML SYRINGE. IV ONE (11:17)
[2020-12-27] MEDS ORDERED: BUPIVACAINE-EPI 0.5% 30 ML VIAL KIT. ONE (11:51)
[2020-12-27] MEDS: MORPHINE SULFATE 2 MG/ML INJ. IVP PRN ×5 (12:39→13:28)
[2020-12-27] MEDS ORDERED: fentaNYL PF VIAL 100 MCG/2 ML VIAL IVP PRN ×2 (12:45)
[2020-12-27] MEDS ORDERED: PROCHLORPERAZINE 10 MG/2 ML VIAL. IVP PRN (12:45)
[2020-12-27] MEDS ORDERED: HYDROmorphone 2 MG/ML VIAL IVP PRN (12:45)
[2020-12-27] MEDS ORDERED: MORPHINE SULFATE 2 MG/ML INJ. ONE ×2 (12:53→13:27)
[2020-12-27 12:57] VITALS: BP 138/83
[2020-12-27] MEDS ORDERED: HYDR-2769 PO (13:05)
--- NOTE | 2020-12-27 13:18 | DISCH ---
DISCHARGE INSTRUCTIONS Condition on Discharge Condition on Discharge: Stable Activity After Discharge Activity Instructions for Disc: Other, see below Lifting Instructions after Dis: No heavy lifting, No pulling or pushing Weight Bearing Status after Di: Non weight bearing Diet after Discharge Diet after Discharge: Regular Diet Texture: Regular Wound Incision Care Wound/Incision Care: Change dressing (remove dressing 2 days may then shower ) Contacting the DRSilvia after DC Call your doctor for: Concerns you may have Follow-Up Follow up with: Danette or Sherry 10 days Treatment/Equipment after DC Adaptive Equipment Issued: None EDVIN VERA MD Dec 27, 2020 13:18
[2020-12-27] MEDS ORDERED: HYDROcodone/APAP 10/325 1 TAB TABLET PO ONE (13:30)
--- NOTE | 2020-12-27 19:01 | PDOC4 ---
Operative Note Operative Note Date of surgery: 12/27/2020 Preoperative diagnosis: Right shoulder labral tear Postoperative diagnosis: Same with SLAP tear and increased anterior translation with the arm to the side Operative procedure: Right shoulder arthroscopy, SLAP repair and rotator interval closure Surgeon: Danette Stamping Die Maker: Benito webster assist Anesthesia: General plus scalene block Estimated blood loss: 5 cc Complications: None Operative indications: Please see my orthopedic clinic note for detailed operative indications and note that we had covered the rationale for operative treatment of the labral injury and any other pathology noted as well as risk benefits postoperative course of infection nonhealing nerve or blood vessel damage continued pain medical or other anesthetic complications among others and the long recovery process and rationale for restrictions postoperatively. All his questions were answered he agrees to proceed with surgical evaluation and treatment Operative text: Patient was identified procedure verified patient placed in the supine position on the operating table. After adequate amounts of general anesthesia were administered along with a pre-existing scalene block the patient was placed decubitus right side up all bony prominences were well-padded and the right shoulder was examined under anesthesia found to have full range of motion no instability in abduction with [id number]. However he did have some increased anterior translation with the arm to the side and was prepped and draped in standard sterile fashion placed in the arthroscopic arm gutierrez with a total of 10 pounds of traction. After timeout was performed patient procedure identified and verified a standard posterior portal was established an anterior portal established using spinal needle localization and the shoulder joint was systematically examined. He was found to have a unstable SLAP tear with an otherwise intact biceps tendon and anchor with no subluxation. Subscapularis was noted to be intact. The previous Bankart repair was noted to be intact and there was no compromise of the anterior inferior glenoid or capsuloligamentous structures inferiorly. No Hill-Sachs lesion was noted and he had a normal bare area of the humerus. Superior glenoid was debrided to bleeding bony tissue to allow good ingrowth of the SLAP repair and a posterior lateral portal was established to allow placement of a transmuscular portal and a single loaded juggernaut labral anchor was placed and tied using sliding locking knots backed up by alternating post half hitches. An additional juggernaut anchor was placed anterior to the biceps anchor and likewise secured using sliding locking knots backed up by alternating post half hitches. Excellent reapposition of the superior labrum and biceps anchor was noted on probing and no instability on motion of the shoulder or peelback was noted. Given however that he did have increased translation with the arm to the side as opposed to more up in abd uction I elected to perform a rotator interval closure which was accomplished with max braid suture passed through the subscapularis and superior capsule and tied as the anterior portal cannula was removed. The shoulder was then drained of arthroscopic fluid and portals closed with nylon suture sterile dressings were applied patient was placed in an immobilizer and returned to recovery room in stable condition having tolerated procedure well. Benito webster assist was present for the procedure assisted in patient positioning prepping draping retraction closure and dressings EDVIN VERA MD Dec 27, 2020 19:01
== END 2020-12-27 13:57 | disposition home or self-care (01) ==
LOC: SURG 09:10
PROVIDERS: ATTEND Orthopaedic Surgery
DX: S43.431A Superior glenoid labrum lesion of right shoulder, initial encounter (principal); I50.9 Heart failure, unspecified; M19.90 Unspecified osteoarthritis, unspecified site; F41.9 Anxiety disorder, unspecified; F32.9 Major depressive disorder, single episode, unspecified; K21.9 Gastro-esophageal reflux disease without esophagitis; F17.210 Nicotine dependence, cigarettes, uncomplicated; Z79.899 Other long term (current) drug therapy; Z98.890 Other specified postprocedural states; X58.XXXA Exposure to other specified factors, initial encounter; Y93.89 Activity, other specified; Y92.89 Other specified places as the place of occurrence of the external cause; Y99.8 Other external cause status
CPT/HCPCS: 29807; 64415; A4565; A4930; A6253; C1713; J0171; J0690; J1100; J1170; J1885; J2250; J2270; J2405; J2704

== ENCOUNTER → 2021-05-02 | Outpatient (CLI) | payer OTHER ==
[~2021-05-02] MED LIST changes: -DEXAMETHASONE SOD PHOS 4 MG/ML VIAL ONE; -KETOROLAC 30 MG/ML VIAL. ONE; -LIDOCAINE 2% PF 5 ML VIAL. ONE; -ONDANSETRON PF 4 MG/2 ML VIAL. ONE; -PROPOFOL 10 MG/ML (20ML) VIAL. IV ONE; -ROCURONIUM 50 MG/5 ML VIAL. ONE; -SEVOFLURANE 61 TO 120 MINUTES. IH ONE; -ceFAZolin SODIUM IV Push 1 GM VIAL. IVP PRN
--- NOTE | 2021-05-02 11:49 | CARD ---
MR#: [id number] Date of Study: 05/02/2021 Ordering Physician: LAYO AGUILAR, Referring Physician: LAYO AGUILAR, Tech: Naomie Grubbs [facility] APPROVED REPORT EXAM: Two-dimensional and M-mode echocardiogram with Doppler and color Doppler. Other Information Quality : GoodHR: 84bpm Rhythm : NSR INDICATION Cardiomyopathy RISK FACTORS Hypertension 2D DIMENSIONS RVDd4.2 (2.9-3.5cm)Left Atrium(2D)3.3 (1.6-4.0cm) IVSd0.9 (0.7-1.1cm)Aortic Root(2D)3.2 (2.0-3.7cm) LVDd5.2 (3.9-5.9cm)LVOT Diameter2.2 (1.8-2.4cm) PWd0.9 (0.7-1.1cm)LVDs4.3 (2.5-4.0cm) FS (%) 17.7 %SV46.8 ml LVEF(%)36.6 (>50%) Aortic Valve AoV Peak Jossue.122.3cm/sAoV VTI23.7cm AO Peak GR.6.0mmHgLVOT Peak Jossue.94.0cm/s AO Mean GR.3mmHgAVA (VMAX)2.80cm2 Mitral Valve MV E Qinieknu65.2cm/sMV DECEL [id number] MV A Ijgzoqlc96.0cm/sE/A Ratio1.1 Pulmonary Valve PV Peak Qaigimvu721.9cm/s LEFT VENTRICLE The left ventricle is normal size. There is normal left ventricular wall thickness. The left ventricu lar systolic function is moderately impaired. Estimated ejection fraction 35%. There is global hypok inesis of the left ventricle. Transmitral Doppler flow pattern is Grade I-abnormal relaxation pattern . RIGHT VENTRICLE The right ventricle is normal size. There is normal right ventricular wall thickness. ATRIA The left atrium size is normal. The right atrium size is normal. The interatrial septum is intact wit h no evidence for an atrial septal defect or patent foramen ovale as noted on 2-D or Doppler imaging. AORTIC VALVE The aortic valve is normal in structure and function. Doppler and Color Flow revealed no significant aortic regurgitation. There is no significant aortic valvular stenosis. MITRAL VALVE The mitral valve is normal in structure and function. There is no evidence of mitral valve prolapse. There is no mitral valve stenosis. Doppler and Color-flow revealed mild mitral regurgitation. TRICUSPID VALVE The tricuspid valve is normal in structure and function. Doppler and Color Flow revealed trace tricus pid valve regurgitation. There is no tricuspid valve stenosis. PULMONIC VALVE The pulmonary valve is normal in structure and function. Doppler and Color Flow revealed no pulmonic valvular regurgitation. GREAT VESSELS The aortic root is normal in size. The ascending aorta is normal in size. The IVC is normal in size a nd collapses >50% with inspiration. PERICARDIAL EFFUSION There is no evidence of significant pericardial effusion. Critical Notification Critical Value: No <Conclusion> The left ventricular systolic function is moderately impaired. Estimated ejection fraction 35%. Mild mitral regurgitation. Trace tricuspid valve regurgitation. There is no evidence of significant pericardial effusion. Signed by : Eddie Zarate, Electronically Approved : 05/02/2021 11:49:38
== END ==
LOC: ECHO 08:47
PROVIDERS: ATTEND Internal Medicine Cardiovascular Disease
DX: I34.0 Nonrheumatic mitral (valve) insufficiency (principal); I42.9 Cardiomyopathy, unspecified
CPT/HCPCS: 93306; C8929